=== PATIENT | male | born 1950 | race Caucasian/White ===

== ENCOUNTER 2016-12-09 18:22 | Emergency (ER) | payer MEDICARE ==
[~2016-12-09 18:22] MED LIST: ACTONEL35 MG; BLEPH-105 ML LEFT EYE; COUMADIN2.5 MG; COUMADIN5 MG; CRANBERRY; DOLACET 5/500 C1 CAP; HYDROCODON-ACE1 EA16 PO; HYDROCODON-ACE1 EA17 PO; HYDROCODON-ACE1 EAC7 PO; LISINOPRIL PO; LISINOPRIL2.5 MG PO; LOTRIMIN30 GM TP; MEDROL4 M2 PO; METAMUCIL1 PKT; MIRALAX12 EA; MOTRIN600 MG PO; MULTIVITAMIN1 CAP; NEXIUM40 MG; NORCO 5/325 TAB1 TAB; NORCO 5/325 TAB1 TAB PO; NORVASC5 M1 PO; OXYCONTIN PO; PEPCID20 M1 PO; PERCOCET 5/3251 TAB PO; PREDNISONE10 MG PO; RYTHMOL225 MG; TOPROL XL25 MG; TOPROL XL50 M1 PO; TYLENOL; TYLENOL W/CODEI1 TAB; ZANAFLEX4 M2 PO; ZOFRAN ODT4 MG/UDTAB PO
[2016-12-09] MEDS ORDERED: TYLENOL EXTRA500 M1 PO (18:40)
[2016-12-09] MEDS ORDERED: ULTRAM50 M1 PO (18:41)
[2016-12-09 20:04] LABS: URINE APPEARANCE CLEAR; URINE BILIRUBIN NEGATIVE (NEG); URINE BLOOD NEGATIVE (NEG); URINE COLOR YELLOW; URINE GLUCOSE (UA) NEGATIVE (NEG); URINE KETONE NEGATIVE (NEG); URINE LEUKOCYTE ESTERASE POSITIVE (NEG); URINE NITRITE NEGATIVE (NEG); URINE PROTEIN NEGATIVE (NEG)
[2016-12-09 20:12] LABS: URINE BACTERIA 3+; URINE EPITHELIAL CELLS RARE /[HPF] (0-10); URINE RBC 0 /[HPF] (0-5)
[2016-12-09] MEDS ORDERED: HYDROCODON-ACE1 EA16 PO (20:44)
[2016-12-15] MEDS ORDERED: NITROFURANTOIN100 M3 PO (06:31)
== END 2016-12-09 20:55 ==
LOC: EDMED 18:22
PROVIDERS: Emergency Medicine
DX: S20.212A Contusion of left front wall of thorax, initial encounter (principal); R82.71 Bacteriuria; W55.12XA Struck by horse, initial encounter
CPT/HCPCS: J1170; P9612

== ENCOUNTER 2016-12-15 10:54 | Emergency (ER) | payer MEDICARE ==
[~2016-12-15 10:54] MED LIST changes: +NITROFURANTOIN100 M3 PO; +TYLENOL EXTRA500 M1 PO; +ULTRAM50 M1 PO
[2016-12-15] MEDS ORDERED: NORCO 5-325 TA1 EACH PO (19:40)
[2016-12-15] MEDS ORDERED: PERCOCET 5-3251 EACH PO (21:27)
[2016-12-15] MEDS ORDERED: PREDNISONE20 M1 PO (21:27)
== END 2016-12-15 11:34 | disposition left against medical advice (07) ==
LOC: EDMED 10:54
DX: Z53.21 Procedure and treatment not carried out due to patient leaving prior to being seen by health care provider (principal)

== ENCOUNTER 2017-04-18 23:22 | Emergency (ER) | payer MEDICARE ==
[~2017-04-18] VITALS: Ht 177.8 cm; Wt 95.2 kg
[~2017-04-18 23:22] MED LIST changes: +NORCO 5-325 TA1 EACH PO; +PERCOCET 5-3251 EACH PO; +PREDNISONE20 M1 PO
== END 2017-04-19 00:45 ==
LOC: EDMED 23:22
DX: G57.91 Unspecified mononeuropathy of right lower limb (principal); I10 Essential (primary) hypertension
CPT/HCPCS: J1170